=== PATIENT | male | born 1990 | race Caucasian/White ===

== ENCOUNTER 2017-10-10 15:17 | Emergency (ER) | payer OTHER ==
[~2017-10-10] VITALS: Ht 177.8 cm; Wt 95.3 kg
[~2017-10-10 15:17] MED LIST: BACTRIM DS TAB1 EAC1 PO; NOHOMEMEDICATIONS; NORCO 5-325 TA1 EACH PO; ONDANSETRON HCL4 M1 PO; PERCOCET 5-3251 EACH PO
[2017-10-10] MEDS ORDERED: IBUPROFEN 800800 M1 PO (16:43)
[2017-10-10] MEDS ORDERED: KEFLEX500 M1 PO (16:43)
[2017-10-10 16:54] VITALS: BP 126/83
== END 2017-10-10 16:55 | disposition home or self-care (01) ==
LOC: M.ERS 15:17
DX: K62.5 Hemorrhage of anus and rectum (principal); K64.4 Residual hemorrhoidal skin tags; K08.89 Other specified disorders of teeth and supporting structures

== ENCOUNTER 2017-11-22 19:21 | Emergency (ER) | payer OTHER ==
[~2017-11-22] VITALS: Ht 177.8 cm; Wt 95.3 kg
[~2017-11-22 19:21] MED LIST changes: +IBUPROFEN 800800 M1 PO; +KEFLEX500 M1 PO
[2017-11-22] MEDS ORDERED: IBUPROFEN 800800 MG PO (19:43)
[2017-11-22] MEDS ORDERED: ACETAMINOPHEN-1 EAC1 PO (19:43)
[2017-11-22] MEDS ORDERED: AMOXICILLIN 50500 MG PO (19:43)
[2017-11-22 20:03] VITALS: BP 112/84
== END 2017-11-22 20:05 | disposition home or self-care (01) ==
LOC: M.ERS 19:21
DX: K08.89 Other specified disorders of teeth and supporting structures (principal); F17.200 Nicotine dependence, unspecified, uncomplicated

== ENCOUNTER 2017-11-27 15:07 | Emergency (ER) | payer OTHER ==
[~2017-11-27] VITALS: Ht 177.8 cm; Wt 95.3 kg
[~2017-11-27 15:07] MED LIST changes: +ACETAMINOPHEN-1 EAC1 PO; +AMOXICILLIN 50500 MG PO; +IBUPROFEN 800800 MG PO
[2017-11-27 15:20] VITALS: BP 135/71
[2017-11-27] MEDS ORDERED: CLEOCIN HCL150 MG PO (15:29)
[2017-11-27] MEDS ORDERED: NORCO 5-325 TA1 EACH PO (15:29)
== END 2017-11-27 15:39 | disposition home or self-care (01) ==
LOC: M.ERS 15:07
DX: K04.7 Periapical abscess without sinus (principal); K08.89 Other specified disorders of teeth and supporting structures

== ENCOUNTER 2018-03-18 10:16 | Emergency (ER) | payer OTHER ==
[~2018-03-18] VITALS: Ht 177.8 cm; Wt 86.2 kg
[~2018-03-18 10:16] MED LIST changes: +CLEOCIN HCL150 MG PO
[2018-03-18] MEDS ORDERED: KEFLEX500 M1 PO (10:48)
[2018-03-18 10:50] VITALS: BP 120/79
== END 2018-03-18 11:22 | disposition home or self-care (01) ==
LOC: M.ERS 10:16
DX: S61.213A Laceration without foreign body of left middle finger without damage to nail, initial encounter (principal); F17.200 Nicotine dependence, unspecified, uncomplicated; W26.0XXA Contact with knife, initial encounter; Y93.89 Activity, other specified; Y92.89 Other specified places as the place of occurrence of the external cause; Y99.8 Other external cause status

== ENCOUNTER 2018-05-16 16:50 | Inpatient (IN) | payer OTHER ==
[~2018-05-16] VITALS: Ht 177.8 cm; Wt 89.8 kg
[2018-05-16 16:54] VITALS: BP 128/83
[2018-05-16 17:40] LABS: ABSOLUTE BASOPHILS 0.1 thou/uL (0.0-0.2); ABSOLUTE EOSINOPHILS 0.1 thou/uL (0.0-0.7); ABSOLUTE LYMPHOCYTES 2.2 thou/uL (0.8-5.3); ABSOLUTE MONOCYTES 0.7 thou/uL (0.0-1.2); ABSOLUTE NEUTROPHILS 9.1 thou/uL (1.6-8.1); BASOPHILS 1.1 %; EOSINOPHILS 1.1 %; HEMATOCRIT 46.6 % (42.0-52.0); HEMOGLOBIN 16.2 gm/dL (14.0-18.0); LYMPHOCYTES 17.9 %; MCH 32.1 pg (26.0-34.0); MCHC 34.7 g/dL (28.0-37.0); MCV 92.6 fL (80.0-100.0); MPV 9.2 fl. (7.2-11.1); NUCLEATED RBCS 0 /100WBC; PLATELET COUNT* 234 thou/uL (150-400); POLYS 73.9 %; RBC 5.04 mil/uL (4.50-6.00); RDW-CV 13.3 % (10.5-14.5); WBC 12.3 thou/uL (4.0-11.0)
[2018-05-16 17:47] LABS: URINE BILIRUBIN NEGATIVE (Negative); URINE BLOOD NEGATIVE (Negative); URINE CLARITY CLEAR; URINE COLOR YELLOW; URINE GLUCOSE-RANDOM NEGATIVE (Negative); URINE KETONES NEGATIVE (Negative); URINE LEUKOCYTES-REFLEX NEGATIVE (Negative); URINE NITRITE-REFLEX NEGATIVE (Negative); URINE PROTEIN NEGATIVE (Negative); URINE SPECIFIC GRAVITY <= 1.005 (1.005-1.030); URINE UROBILINOGEN 0.2 E.U./dl (0.2-1.0)
[2018-05-16 17:49] LABS: CALCIUM 8.9 mg/dL (8.5-10.1); CREATININE 1.1 mg/dL (0.6-1.3); POTASSIUM 3.5 mmol/L (3.5-5.1)
[2018-05-16 19:52] VITALS: BP 122/80
[2018-05-16 21:00] VITALS: BP 115/57
[2018-05-17 09:52] VITALS: BP 111/67
[2018-05-17 11:18] VITALS: BP 111/67
[2018-05-17 16:12] VITALS: BP 111/67
[2018-05-17 20:00] VITALS: BP 114/70
[2018-05-18 00:14] VITALS: BP 106/54
[2018-05-18 04:35] VITALS: BP 102/52
[2018-05-18 11:17] VITALS: BP 102/52
[2018-05-18] MEDS ORDERED: NICOTINE PATCH TRANSDERM (11:45)
[2018-05-18] MEDS ORDERED: DOXYCYCLINE 10100 MG PO (11:47)
[2018-05-18] MEDS ORDERED: IBUPROFEN 200200 M1 PO (11:48)
[2018-05-18] MEDS ORDERED: NORCO 5-325 TA1 EACH PO (11:49)
[2018-05-18] MEDS ORDERED: MIRALAX17 GM PO (11:51)
[2018-05-18 11:52] VITALS: BP 102/52
--- NOTE | 2018-05-18 12:10 | OP ---
[facility] [address] [place] [address] OPERATIVE REPORT Name: DRAKESUECHELA CHO Room: [address] M.R.#: [id number] Admission: 05/16/18 Attend Phys: Valeri Saldana Discharge: Date of : 89 Report #: [id number] THIS REPORT FOR: //name// CC: [facility] physician/PCP Kaci Little DATE OF SERVICE: 05/17/2018 PREOPERATIVE DIAGNOSIS: Left scrotal abscess. POSTOPERATIVE DIAGNOSIS: Left scrotal abscess. PROCEDURE: Incision and drainage of left scrotal abscess. SURGEON: Lashonda Henry M.D. ANESTHESIA: General. ESTIMATED BLOOD LOSS: Minimal. COMPLICATIONS: None. SPECIMENS: Pus for culture and sensitivity. INDICATIONS FOR PROCEDURE: The patient is a 28-year-old male with a left scrotal abscess. He has failed outpatient therapy and presents with a 5 x 4 cm abscess in his left side of the scrotum in the groin crease. Incision and drainage is indicated. Risks of procedure were discussed including but not limited to infection, bleeding, injury to surrounding structures and also we discussed need for prolonged packing. He agrees and wished to proceed. DESCRIPTION OF PROCEDURE: After informed consent was obtained, the patient was taken back to the operating suite, placed supine. After induction of general anesthesia, he was placed in dorsal lithotomy position. Genitalia were prepped and draped in standard fashion as well as his legs and lower abdomen. The abscess was examined. It was at the left side of the scrotum adjacent to the groin crease and was probably about 5 cm in length and fluctuant. Incision was made over this for about an inch or two in length and a small amount of pus was drained out and this was sent for specimen for culture and sensitivity. The wound did not track any further superiorly, laterally or inferiorly and was quite superficial. There was no necrotic tissue noted and the tissues underlying were completely healthy. The wound was then copiously irrigated with antibiotic solution. Hemostasis was achieved with electrocautery of any bleeding skin edges. Again, the wound was probed digitally and did not track anywhere else. Hemostasis was excellent at this point. [place] [address] OPERATIVE REPORT Name: SUE JUAN Room: [address] [place] [facility].#: [id number] Admission: 05/16/18 Attend Phys: Valeri Saldana Discharge: Date of : 89 Report #: [id number] iodoform was used and the wound was very superficial. A 4 x 4 gauze and fluffs were applied followed by a scrotal support. All sponge, needle and instrument counts were correct at the end of the case. He was awoken, extubated and taken to recovery in satisfactory condition. He will be admitted back to the floor. We will have the wound care nurse see him and I anticipate he will be able to go home tomorrow doing packing changes. <ELECTRONICALLY SIGNED> By: Lashonda Henry MD 05/18/18 1210 1723 1909Lashonda Henry MD /nt
[2018-05-18 12:40] VITALS: BP 102/52
[2018-05-18 12:41] VITALS: BP 102/52
== END 2018-05-18 12:43 | disposition home or self-care (01) | DRG 727 ==
LOC: M.ERS 16:50 → M.ORTHSURG 19:00 → M.TBA-ER 19:00 → M.ORTHSURG 20:06
PROVIDERS: Nurse Practitioner Psychiatric/Mental Health; ADMIT Internal Medicine
PROC: 0V950ZZ Drainage of Scrotum, Open Approach (ICD-10-PCS; principal; 2018-05-17)
DX: N49.2 Inflammatory disorders of scrotum (principal); J18.9 Pneumonia, unspecified organism; D72.829 Elevated white blood cell count, unspecified; G43.909 Migraine, unspecified, not intractable, without status migrainosus; F17.210 Nicotine dependence, cigarettes, uncomplicated; J06.9 Acute upper respiratory infection, unspecified; Z79.899 Other long term (current) drug therapy; Z87.81 Personal history of (healed) traumatic fracture; Z83.3 Family history of diabetes mellitus; Z82.49 Family history of ischemic heart disease and other diseases of the circulatory system

== ENCOUNTER 2019-07-03 07:20 | Emergency (ER) | payer OTHER ==
[~2019-07-03] VITALS: Ht 177.8 cm; Wt 70.3 kg
[~2019-07-03 07:20] MED LIST changes: +DOXYCYCLINE 10100 MG PO; +IBUPROFEN 200200 M1 PO; +MIRALAX17 GM PO; +NICOTINE PATCH TRANSDERM
[2019-07-03 08:12] LABS: ABSOLUTE BASOPHILS 0.1 thou/uL (0.0-0.2); ABSOLUTE LYMPHOCYTES 1.6 thou/uL (0.8-5.3); ABSOLUTE MONOCYTES 0.8 thou/uL (0.0-1.2); ABSOLUTE NEUTROPHILS 11.6 thou/uL (1.6-8.1); BASOPHILS 0.8 %; EOSINOPHILS 0.1 %; HEMATOCRIT 48.3 % (42.0-52.0); HEMOGLOBIN 16.6 gm/dL (14.0-18.0); MCH 32.4 pg (26.0-34.0); MCHC 34.4 g/dL (28.0-37.0); MCV 94.1 fL (80.0-100.0); MONOCYTES 5.7 %; MPV 8.5 fl. (7.2-11.1); NUCLEATED RBCS 0 /100WBC; PLATELET COUNT* 242 thou/uL (150-400); POLYS 82.4 %; RBC 5.13 mil/uL (4.50-6.00); RDW-CV 13.2 % (10.5-14.5); WBC 14.1 thou/uL (4.0-11.0)
[2019-07-03 08:15] LABS: URINE BLOOD NEGATIVE (Negative); URINE CLARITY CLEAR; URINE COLOR YELLOW; URINE GLUCOSE-RANDOM NEGATIVE (Negative); URINE KETONES 2+ (Negative); URINE LEUKOCYTES-REFLEX NEGATIVE (Negative); URINE NITRITE-REFLEX NEGATIVE (Negative); URINE PROTEIN TRACE (Negative)
[2019-07-03 08:17] LABS: ICTOTEST (BILI CONFIRMATORY) Negative (Negative); URINE BILIRUBIN 1+ (Negative)
[2019-07-03 08:24] LABS: AMP/METHAMP Negative (Negative); BARBITURATES Negative (Negative); BENZODIAZEPINES POSITIVE (Negative); COCAINE Negative (Negative); METHADONE Negative (Negative); OPIATES Negative (Negative); PCP Negative (Negative); THC POSITIVE (Negative)
[2019-07-03 08:27] LABS: CALCIUM 9.7 mg/dL (8.5-10.1); CREATININE 1.1 mg/dL (0.6-1.3); POTASSIUM 3.5 mmol/L (3.5-5.1)
[2019-07-03 08:32] LABS: ALBUMIN 5.4 g/dL (3.4-5.0); TOTAL BILIRUBIN 1.1 mg/dL (<0.1-1.0); TOTAL PROTEIN 8.9 g/dL (6.4-8.2)
[2019-07-03 08:43] LABS: SALICYLATE 6.2 mg/dL (2.8-20.0)
[2019-07-03 08:44] LABS: ACETAMINOPHEN < 2 ug/mL (10-30); ALCOHOL < 10 mg/dL (<10)
[2019-07-04 17:25] VITALS: BP 124/85
== END 2019-07-04 17:25 ==
LOC: M.ERS 07:20
PROVIDERS: Family Medicine
DX: F29 Unspecified psychosis not due to a substance or known physiological condition (principal); G43.909 Migraine, unspecified, not intractable, without status migrainosus; Z79.899 Other long term (current) drug therapy

== ENCOUNTER 2019-07-29 16:40 | Emergency (ER) | payer OTHER ==
[~2019-07-29] VITALS: Ht 177.8 cm; Wt 68.0 kg
[2019-07-29] MEDS ORDERED: ZOLOFT50 M1 PO (16:48)
[2019-07-29 17:12] LABS: ABSOLUTE BASOPHILS 0.1 thou/uL (0.0-0.2); ABSOLUTE EOSINOPHILS 0.1 thou/uL (0.0-0.7); ABSOLUTE LYMPHOCYTES 2.1 thou/uL (0.8-5.3); ABSOLUTE MONOCYTES 0.6 thou/uL (0.0-1.2); ABSOLUTE NEUTROPHILS 8.1 thou/uL (1.6-8.1); BASOPHILS 0.9 %; EOSINOPHILS 1.1 %; HEMATOCRIT 43.7 % (42.0-52.0); HEMOGLOBIN 15.3 gm/dL (14.0-18.0); LYMPHOCYTES 18.8 %; MCH 32.8 pg (26.0-34.0); MCHC 35.1 g/dL (28.0-37.0); MCV 93.6 fL (80.0-100.0); MONOCYTES 5.5 %; MPV 8.5 fl. (7.2-11.1); NUCLEATED RBCS 0 /100WBC; PLATELET COUNT* 228 thou/uL (150-400); POLYS 73.7 %; RBC 4.67 mil/uL (4.50-6.00); RDW-CV 13.2 % (10.5-14.5)
[2019-07-29 17:13] LABS: URINE BILIRUBIN NEGATIVE (Negative); URINE BLOOD TRACE (Negative); URINE CLARITY CLEAR; URINE COLOR YELLOW; URINE GLUCOSE-RANDOM NEGATIVE (Negative); URINE KETONES NEGATIVE (Negative); URINE LEUKOCYTES-REFLEX NEGATIVE (Negative); URINE NITRITE-REFLEX NEGATIVE (Negative); URINE PROTEIN NEGATIVE (Negative); URINE UROBILINOGEN 0.2 E.U./dl (0.2-1.0)
[2019-07-29 17:22] LABS: CALCIUM 9.4 mg/dL (8.5-10.1); CREATININE 1.1 mg/dL (0.6-1.3); POTASSIUM 3.7 mmol/L (3.5-5.1)
[2019-07-29 17:23] LABS: AMP/METHAMP Negative (Negative); BARBITURATES Negative (Negative); BENZODIAZEPINES Negative (Negative); COCAINE Negative (Negative); METHADONE Negative (Negative); OPIATES Negative (Negative); PCP Negative (Negative); THC POSITIVE (Negative)
[2019-07-29 17:27] LABS: ALBUMIN 4.9 g/dL (3.4-5.0); TOTAL BILIRUBIN 0.7 mg/dL (<0.1-1.0); TOTAL PROTEIN 7.9 g/dL (6.4-8.2)
[2019-07-29 17:29] LABS: ALCOHOL < 10 mg/dL (<10); SALICYLATE 4.6 mg/dL (2.8-20.0)
[2019-07-29 17:31] LABS: ACETAMINOPHEN < 2 ug/mL (10-30)
[2019-07-29 20:31] VITALS: BP 140/70
== END 2019-07-29 20:30 | disposition home or self-care (01) ==
LOC: M.ERS 16:40
PROVIDERS: Family Medicine
DX: R45.851 Suicidal ideations (principal); F41.9 Anxiety disorder, unspecified; F32.9 Major depressive disorder, single episode, unspecified; G43.909 Migraine, unspecified, not intractable, without status migrainosus; Z79.899 Other long term (current) drug therapy